=== PATIENT | female | born 1980 | race Caucasian/White ===

== ENCOUNTER 2016-05-20 10:28 | Inpatient (IN) | payer OTHER ==
[~2016-05-20] VITALS: Ht 167.6 cm; Wt 108.0 kg
[2016-05-20] MEDS ORDERED: Lactated Ringer's 1,000 ML IV SCH (14:10)
[2016-05-20] MEDS ORDERED: Oxytocin 30 Units/500 mL LR 30 UNITS in IV Premix 1 EACH IV PRN (14:10)
[2016-05-20] MEDS ORDERED: diphenhydrAMINE 50 mg Capsule PO PRN (14:10)
[2016-05-20] MEDS ORDERED: Oxytocin 10 Unit/mL Inj IM PRN (14:15)
[2016-05-20] MEDS ORDERED: Methylergonovine 0.2 mg/mL Inj IM PRN (14:15)
[2016-05-20] MEDS ORDERED: Penicillin G K Inj 5,000,000 UNITS in Dextrose 5% Minibag Plus 100 ML IV ONE (14:15)
[2016-05-20] MEDS ORDERED: Hemorrhage Kit, Post Partum XX ONE (14:15)
[2016-05-20] MEDS ORDERED: Carboprost 250 mCg/mL Inj IM PRN (14:15)
[2016-05-20 14:34] LABS: Mean Corpuscular Hemoglobin 28.4 pg (27.0-35.0); Mean Corpuscular Volume 84.3 fL (81-100)
--- NOTE | 2016-05-20 15:07 | OP ---
[address] [address] OPERATIVE REPORT PATIENT: MARIELLA GARCIA : 1980 MR#: [id number] ADMIT: 05/20/2016 JOB ID: [id number] DATE OF SURGERY: 05/20/2016 PREOPERATIVE DIAGNOSIS(ES): A 36-year-old, 2, para 1-0-0-1, at 41 weeks and 1 day gestational age, presenting for elective induction of labor. complicated with the followin. Rh negative. 2. Left pelviectasis. Last measurement is 14 mm at 36 weeks. 3. Evolving polyhydramnios. JALEN 23.4 cm yesterday ultrasound. POSTOPERATIVE DIAGNOSIS(ES): A 36-year-old, 2, para 1-0-0-1, at 41 weeks and 1 day gestational age, presenting for elective induction of labor. complicated with the followin. Rh negative. 2. Left pelviectasis. Last measurement is 14 mm at 36 weeks. 3. Evolving polyhydramnios. JALEN 23.4 cm yesterday ultrasound. PROCEDURE: Cervical ripening balloon insertion. SURGEON: Luis Felipe Solorio MD. ANESTHESIA: None. Vital signs: 130/77 for blood pressure, respirations are 18, pulse of 93, temperature 36.7 degrees centigrade. heart tracing with baseline of 125 beats per minute, positive accelerations, no decelerations, moderate variability, reactive tracing. DESCRIPTION OF PROCEDURE: Cervix was 1 cm dilated, long and high. On examination, the presentation was confirmed to be vertex on yesterday's ultrasound. The cervical ripening balloon was inserted through the cervical canal and after adequate positioning, 80 cc of normal saline injected in the uterine balloon and 80 cc of normal saline injected in the vaginal balloon. The patient tolerated the procedure well. Plan: Will continue with the cervical ripening balloon for 12 hours or until the balloon falls out, whichever earlier. Start Pitocin thereafter. I was asked to insert the balloon by Dr. Murguia, who is the patient's OB provider.Dr. Murguia will continue intrapartum management. [facility]
[2016-05-20] MEDS ORDERED: 0.9% Sodium Chloride 100 ML ONE (21:23)
[2016-05-20] MEDS ORDERED: Penicillin G K 5,000,000 Units Inj ONE (21:23)
[2016-05-20] MEDS: Lactated Ringer's 1,000 ML IV SCH (21:35)
--- NOTE | 2016-05-20 22:56 | PCM.HPOB ---
Subjective Date of Service: May 20, 2016 Referring Provider: Admitting Physician: Shona Murguia MD Primary Care Physician: Emmie Hernandez MD Attending Physician: Shona Murguia MD Chief Complaint labor induction at 41 wk 1 day gestational age History of Present History of Present Illness 36 F, , at 41 wk 1 d gestational age by LMP, confirmed by 15 wk u/s, presented around noon for labor induction indicated by post dates, polyhydramnios, and kidney anomaly. Initial exam revealed that the cervix was 1 cm dilated, long and high. Dr. Solorio then placed a balloon for cervical dilation around 2 PM today[address] pt sees Dr. Hernandez for care; her was complicated by advanced maternal age, Rh negative (RhoGAM given at 28 weeks), obesity, left renal pelviectasis, and GBS positive status. OB History: (2), Para (1), Term (1), Pre-term (0), ( 0), Living (1) Past Medical History Obstetrical History: normal vaginal delivery at term November 2014, after induction of labor at 41 wk 2 d gestational age. Hx Tobacco Use: No Past Family History Living Arrangement: with Family Genetic Screening/Counseling Genetic Screening/Counseling: Negative Review of Systems ROS no complaints Constitutional: Y: Change of appitite, Chills, Dizziness, Fever, Malaise, Other , Pain, Sweats, Weakness, Weight loss Eyes: Denies: Blurred Vision, Conjunctive Inflammation, Double Vision, Eyelid Inflammation, Other, Pain, Redness, Vision Changes ENT: Denies: Dental Problems, Dysphagia, Ear Discharge, Ear Pain, Hoarseness, Membranes Dry, Nasal Congestion, Nose Discharge, Nose Pain, Other, Throat Pain, Tinnitus, Ulcers/Sores in Mouth Cardiovascular: Denies: Chest Pain, Edema, Orthopnea, Other, Palpitations, SOB while laying flat Respiratory: Denies: Cough, Cough with bloody sputum, Other, Pleuritic Chest Pain, Pleuritic Chest Pain, SOB with Exertion, Sputum, Wheezing Gastrointestinal: Denies: Abdominal Pain, Black tarry stools, Blood in stool ( red), Change in Appetite, Constipation, Diarrhea, Epigastric pain, Heartburn, Nausea, Other, Use of Laxatives, Vomiting Genitourinary: Denies: Anuria, Change in Frequency, Dysuria, Hematuria, Incontinence, Nocturia, Other, Retention Musculoskeletal: Denies: Back Pain, Deformity, Limitation of Function, Neck Pain, Other, Redness, Shoulder Pain, Swelling Skin/Breasts: Denies: Bruising, Discharge, Dry or Flakiness, Jaundice, Lesions , Masses, Mastalgia, Other, Rash, Scars, Ulcers Skin: Denies: Bruising, Dry or Flakiness, Jaundice, Lesions, Other, Rash, Scars , Ulcers Neurological: Denies: Change in Speech, Confusion, Dizziness, Incoordination, Numbness, Other, Seizures, Somnolence, Tremors, Weakness Psychologic: Denies: Agitation, Anxious, Apprehensive, Depression, Insomnia, Instability, Nervousness, Other Endocrine: Denies: Blood Glucose Review, Change in Appitite, Diaphoresis, Excessive Thirst, Intolerent to Heat/Cold, Other, Recent A1C, Urinating frequently Medications Home medications vitamins Allergy Coded Allergies: No Known Allergies (Unverified Allergy, Unknown, 11/24/14) Exam Constitutional: Well-developed, Well-nourished, Normal habitus, Obese HEENT: Atraumatic Lungs: Clear to Auscultation Heart: Exam Unremarkable, Regular Rate/Rhythm, Normal S1, Normal S2, No Murmurs /Rubs/Gallops Abdomen: Gravid Neurological/Psychiatric: Alert, Oriented X3, Cooperative, No Acute Distress Labs/Diagnostics Labs O negative, Ab neg, VDRL NR, Rubella immune, HepBsAg neg, HIV neg, GC/CT neg, quad screen normal, glucola 143, 3 hour GTT all normal ([phone]), GBS POSITIVE Maternal Blood Type: O Hx Rho(D) Immune Globulin: Yes Group B Strep Results: Positive Rubella: Immune OB Intrapartum Assessment/Plan Assessment 36 F, , at 41 wk 1 d gestational age by LMP, confirmed by 15 wk u/s, admitted for labor induction indicated by post dates, polyhydramnios(JALEN~23.4 cm ), and kidney anomaly(left pelviectasis). Dr. Solorio for initial consults; see her note for balloon insertion. Will start antibiotics if the membranes ruptures or adequate time is needed prior to delivery. Shona Murguia MD May 20, 2016 22:56
[2016-05-21] MEDS: Penicillin G K Inj 3,000,000 UNITS in IV Premix 1 EACH IV SCH ×6 (01:39→22:16)
[2016-05-21] MEDS ORDERED: Lactated Ringer's 500 ML IV ONE (07:41)
[2016-05-21] MEDS: Lactated Ringer's 1,000 ML IV SCH ×3 (07:41→23:41)
[2016-05-21] MEDS ORDERED: EPHEDrine Sulfate 50 mg/mL Inj IVPUSH PRN (07:45)
[2016-05-21] MEDS ORDERED: fentaNYL 2 mCg/mL-Bupiv 0.125% 100 ML EPIDURAL SCH (07:45)
[2016-05-21] MEDS ORDERED: Atropine 1 mg/10 mL (Code) Syringe IVPUSH PRN (07:45)
[2016-05-21] MEDS ORDERED: Ondansetron 2 mg/mL 2 mL Inj IVPUSH PRN (07:45)
[2016-05-21] MEDS: Sodium Chloride LOK Flush 10 mL Syringe IVFLUSH SCH ×2 (08:30→16:30)
--- NOTE | 2016-05-21 18:40 | PCM.CONSUR ---
Subjective Date of Service: May 21, 2016 History of Present Illness A 36-year-old, 2, para 1-0-0-1, at 41 weeks and 1 day gestational age, presenting for elective induction of labor. complicated with the followin. Rh negative. 2. Left pelviectasis. Last measurement is 14 mm at 36 weeks. 3. Evolving polyhydramnios. JALEN 23.4 cm on recent ultrasound. Reason for Consultation AROM and no progress with Pitocin Induction Allergy Allergies: Coded Allergies: No Known Allergies (Unverified Allergy, Unknown, 11/24/14) Past Surgical History Surgeries: Yes (RT TIB) Social History Hx Alcohol Use: No Hx Substance Use: No Hx Tobacco Use: No PMH HEENT History History of ENT Problems?: No Cardiovascular History History of Heart Problems?: No Cardiovascular History: Denies:: Congestive Heart Failure Hypertension Respiratory History of Respiratory Problem: No Respiratory History: Denies:: Tuberculosis Neurological History Hx Neurologic Problems?: No Female/Male History Reproductive History Female: Positive for: Currently ? Musculoskeletal History Hx Musculoskeletal Problems?: No Other History Diabetes: No Social History Hx Alcohol Use: NoHx Substance Use: NoHx Tobacco Use: No Smoking Status: Never Smoker Objective Exam Result Diagram: 05/20/16 1420 Review of Systems: Constitutional: Negative, except as otherwise mentioned in the history above. Ophthalmologic: Negative, except as otherwise mentioned in the history above. Cardiovascular: Negative, except as otherwise mentioned in the history above. Respiratory: Negative, except as otherwise mentioned in the history above. Gastrointestinal: Negative, except as otherwise mentioned in the history above. Genitourinary: Negative, except as otherwise mentioned in the history above. Musculoskeletal: Negative, except as otherwise mentioned in the history above. Neurological: Negative, except as otherwise mentioned in the history above. Psychiatric: Negative, except as otherwise mentioned in the history above. Hematologic/Lymphatic: Negative, except as otherwise mentioned in the history above. Allergic/Immunologic: Negative, except as otherwise mentioned in the history above. H&P Surgical Exam Exam General: Alert, Oriented X3, Cooperative, No Acute Distress Additional Information Cervix is 4cm/50%/-3 posterior and soft. There is a head present and amniotic sac is palpable. Assessment & Plan Assessment 41 week gestation with left pelviectasis and an JALEN of 23.4. Elective induction of labor Problems: (1) Elective induction of labor planned Plan: I discussed with the patient the risks of AROM and alternative option of continuing with Pitocin. She indicated understanding and consented to AROM and restarting Pitocin. I recommend that you continue with Pitocin per protocol at this time and try to avoid stopping and restarting Pitocin. This will only delay her induction. I anticipate that now she is ruptured she will progress and go in to labor. Status: Acute ICD Code: [id number] Tc Ryan MD May 21, 2016 18:40
[2016-05-21] MEDS: Ranitidine 15 mg/mL 473 mL Syrup PO SCH ×2 (19:32→20:30)
--- NOTE | 2016-05-21 21:46 | PCM.PNOBIP ---
Subjective Date of Service May 21, 2016 Subjective Showing good spirit after having rested this afternoon. Gastrointestinal: Good Appetite Group B Strep Results: Positive Rubella: Immune Blood Type: O Labs Laboratory Tests 05/20/16 14:20: White Blood Count 14.7, Red Blood Count 4.72, Hemoglobin 13.4, Hematocrit 39.8, Mean Corpuscular Volume 84.3, Mean Corpuscular Hemoglobin 28.4, Mean Corpuscular Hemoglobin Concent 33.7, Red Cell Distribution Width 13.4, Platelet Count 297 Exam Vital Signs Vital Signs Contraction frequency in minutes: MVUs: Vital Signs: VS reviewed, stable Heart Tracings Heart Tones Baseline bpm Heart Rate Category: I Tocometry/IUPC Contraction frequency in minutes: MVUs: Sterile Vaginal Exam cervix: 4cm/50%/-3 posterior and soft per Dr. Ryan. Exam Extremities: No cords, Normal pulses Lungs: Clear to Auscultation Heart: Exam Unremarkable, Regular Rate/Rhythm, Normal S1, Normal S2, No Murmurs /Rubs/Gallops General: Alert, Oriented X3, Cooperative, No Acute Distress OB Intrapartum Assessment/Plan Assessment 36 F, at 41 wk 2 d gestational age, admitted yesterday noon for elective induction for post dates, AFT=23.4, and left pelviectasis; s/p AROM by Dr. Ryan this evening, produced clear fluid, will continue labor induction with pitocin. See note by Dr. Ryan for recommendations. Problems: (1) Elective induction of labor planned Status: Acute ICD Code: [id number] Shona Murguia MD May 21, 2016 21:46
[2016-05-22] MEDS: Lactated Ringer's 1,000 ML IV SCH ×5 (00:20→21:25)
--- NOTE | 2016-05-22 00:26 | PCM.HPANE ---
Patient Data Surgeon Admitting Provider:Shona Murguia MD Attending Provider:Shona Murguia MD Primary Care Physician:Emmie Hernandez MD Other Provider:[facility] Reason for Visit Induction INDUCTION Ht/WT & BMI Body Mass Index Allergies Coded Allergies: No Known Allergies (Unverified Allergy, Unknown, 11/24/14) Diabetes History Hx Diabetes?: No MRSA MRSA: No History History of ENT Problems?: No Hx of Heart Problems?: No Cardiovascular History: Denies:: Congestive Heart Failure Hypertension Hx of Respiratory Problem?: No Respiratory History: Denies:: Tuberculosis Hx Neurologic Problems?: No Hx of GI Problems?: Yes (GERD well controlled) Female Hx: Positive for:: Currently Hx Musculoskeletal Problems?: No Hx Surgeries?: Yes (RT TIB) Hx Diabetes: No Hx Alcohol Use: NoHx Substance Use: No Smoking Status: Never Smoker Have You Smoked inLast 12 mo: No Stop/Bang Risk Assessment Category Category 1A: Patient has history of documented sleep apnea, and HAS NOT received any narcotic, sedative or anesthesia administration during this stay. Category 1B: Patient has history of documented sleep apnea, and HAS received any narcotic , sedative or anesthesia administration during this stay Category 2: Patient has SUSPECTED Obstructive Sleep Apnea, and HAS received any narcotic , sedative or anesthesia administration during this stay. Category 3: Patient has SUSPECTED Obstructive Sleep Apnea and HAS NOT received narcotic, sedative or anesthesia administration during this stay. Category 4: Outpatient in Procedural Areas with known sleep apnea or who screen positive for High Risk via the STOP/BANG questionnaire. Exam Exam General Appearance: Alert, Oriented X3 HEENT/AIRWAY: MP 2, Neck Movement (FROM) Lungs: Clear to Auscultation, Clear to Percussion Heart: Exam Unremarkable, Regular Rate/Rhythm Meds/Labs/Diagnostics Admission Meds Current Medications Lactated Ringer's 1,000 ml @ 125 mls/hr Q8H IV Last administered on 05/20/16 21:35; Start 05/20/16 at 13:41 Lactated Ringer's 1,000 ml @ 125 mls/hr Q8H IV Last administered on 05/21/16 06:54; Start 05/20/16 at 14:10 Penicillin G Potassium 0233050 units/Dextrose/ Water 100 ml @ 240 mls/hr ONCE ONCE IV Last administered on 05/20/16 21:37; Start 05/20/16 at 14:15; Stop at 14:39; Status DC Penicillin G Potassium/ Dextrose [id number] units/Premix 50 ml @ 100 mls/hr Q4 IV Last administered on 05/21/16 05:32; Start 05/20/16 at 20:30 Sodium Chloride (Normal Saline) 100 ml @ ud STK-MED ONCE .ROUTE Last administered on 05/20/16 21:36; Start 05/20/16 at 21:23; Stop 05/20/16 at 21:24 ; Status DC Labs Test 05/20/16 14:20 White Blood Count 14.7th/mm3 (3.8-10.1) Red Blood Count 4.72mil/mm3 (3.90-5.20) Hemoglobin 13.4g/dL (12.0-15.6) Hematocrit 39.8% (35.0-46.0) Mean Corpuscular Volume 84.3fL (81-100) Mean Corpuscular Hemoglobin 28.4pg (27.0-35.0) Mean Corpuscular Hemoglobin Concent 33.7% (32.0-37.0) Red Cell Distribution Width 13.4% (12.3-15.4) Platelet Count 297bil/L (150-400) Plan Impression Patient chart reviewed, patient interviewed and anesthestic plan with risks, benefits, and alternatives discussed, and informed consent obtained. ASA Physical Status: ASA2 Mod Systemic Disease Anesthetic Plan: Epidural Bene/Risks/Altern/Consents: Yes HP Complete Prior to Induction: Yes Vinod Krishnan MD May 21, 2016 07:43
--- NOTE | 2016-05-22 00:27 | PCM.ANEP2 ---
Post Anesthesia Evaluation ASA/CMS Post Anesthesia VS in Patient's Normal Range?: Yes Resp Stable; Airway Patent?: Yes CV Function & Hydration Stable: Yes Mental Status Recovered?: Yes Pain control Satisfactory?: Yes N/V Control Satisfactory?: Yes Vinod Krishnan MD May 22, 2016 00:27
[2016-05-22] MEDS: Penicillin G K Inj 3,000,000 UNITS in IV Premix 1 EACH IV SCH ×7 (00:30→20:30)
[2016-05-22] MEDS: Sodium Chloride LOK Flush 10 mL Syringe IVFLUSH SCH ×3 (00:30→16:30)
[2016-05-22] MEDS ORDERED: LANOlin HPA 7 Gm Ointment TOPICAL PRN (05:25)
[2016-05-22] MEDS ORDERED: Oxytocin 30 Units/500 mL LR 30 UNITS in IV Premix 1 EACH IV PRN (05:25)
[2016-05-22] MEDS ORDERED: Benzocaine (Dermoplast) 20% 60 Gm Spray TOPICAL PRN (05:25)
[2016-05-22] MEDS ORDERED: Carboprost 250 mCg/mL Inj IM PRN (05:25)
[2016-05-22] MEDS ORDERED: Methylergonovine 0.2 mg/mL Inj IM PRN (05:25)
[2016-05-22] MEDS ORDERED: HYDROcodone-APAP 5-325 mg Tablet PO PRN (05:25)
[2016-05-22] MEDS ORDERED: Witch Hazel-Glycerin Pads TOPICAL PRN (05:25)
[2016-05-22] MEDS ORDERED: Oxytocin 10 Unit/mL Inj IM PRN (05:25)
[2016-05-22] MEDS ORDERED: Hemorrhage Kit, Post Partum XX ONE (05:25)
--- NOTE | 2016-05-22 05:50 | PCM.OBVAG ---
Vaginal Delivery Date of Service May 22, 2016 Pre Operative Diagnosis Pre Operative Diagnosis term ; JALEN=23.4 cm; left pelviectasis; GBS pos; Rh neg. Post Operative Diagnosis Post Operative Diagnosis normal vaginal delivery at term; adequate antibiotic treatment for positive GBS ; Rh negative; Procedure Procedure: dilation was complete at 4:16 AM, delivered at 4:47 AM today 05/22/16; head position: QUYNH; =8/9; the baby girl was placed to mother's chest after immediately after ; the cord was clamped ~2 min after ; the placenta was delivered intact, with 3-vessel cord; 2nd degree midline perineal tear, repaired using 3-O vicryl sutures; ZGH=576 ml. Sponge count was correct; sharps/ needles were disposed appropriately. Both the mother and the remained in good conditions after the delivery. Obstetical Procedure: Normal Spontaneous Vaginal Delivery Bread Jockey/Dredge Operator Provider and Dredge Operator: Dr. Murguia Indication for Procedure Induction: Active labor, Induction of labor, Pitocin augmentation, AROM Findings Obstetrical Findings: [place] (Female), Cord (3 Vessel), 1 minute (8), 5 minutes (9) Analgesia/Medications Obstetrical Anesthesia: Epidural, Local Blood Loss & Administration Estimated Blood Loss: 350 Blood Admin during procedure: No Post Procedure Plan Post delivery Condition: Mom stable, Baby stable to nursery Shona Murguia MD May 22, 2016 05:50
[2016-05-22] MEDS: Ranitidine 15 mg/mL 473 mL Syrup PO SCH ×2 (08:30→20:30)
[2016-05-23 06:47] LABS: Mean Corpuscular Hemoglobin 28.3 pg (27.0-35.0); Mean Corpuscular Volume 85.7 fL (81-100)
[2016-05-23] MEDS: Lactated Ringer's 1,000 ML IV SCH (07:30)
[2016-05-23] MEDS: Ranitidine 15 mg/mL 473 mL Syrup PO SCH (08:30)
[2016-05-23] MEDS: Sodium Chloride LOK Flush 10 mL Syringe IVFLUSH SCH (08:30)
[2016-05-23] MEDS: Penicillin G K Inj 3,000,000 UNITS in IV Premix 1 EACH IV SCH (08:30)
--- NOTE | 2016-05-23 10:52 | PCM.DC.OB ---
Obstetrical Discharge Summary Date of Service May 23, 2016 Date of hospital admission May 20, 2016 at 12:05 Date of Discharge: May 23, 2016 Providers Admitting Physician: Shona Murguia MD Primary Care Physician: Emmie Hernandez MD Attending Physician: Shona Murguia MD Diagnosis at Time of Discharge normal vaginal delivery at term; adequately treated positive GBS. Problems: (1) Elective induction of labor planned Status: Acute ICD Code: [id number] Solorio, Dr. Gomes, Dr. Ryan; Brief History and Physical: 36 F, , at 41 wk 1 d gestational age by LMP, confirmed by 15 wk u/s, presented around noon for labor induction indicated by post dates, polyhydramnios, and kidney anomaly. Initial exam revealed that the cervix was 1 cm dilated, long and high. Dr. Solorio then placed a balloon for cervical dilation. The balloon was displaced ~7 hr later on 05/20/16, when the cervix was dilated to 5 cm. Pitocin augmentation was placed. No adequate dilation until 24 hr later. Dilation was complete ~4:16 AM yesterday morning, and she delivered at 4:43 AM. She did well on day 1, ready to go home. Hospital Course: 36 F, , at 41 wk 1 d gestational age by LMP, confirmed by 15 wk u/s, presented around noon for labor induction indicated by post dates, polyhydramnios, and kidney anomaly. Initial exam revealed that the cervix was 1 cm dilated, long and high. Dr. Solorio then placed a balloon for cervical dilation. The balloon was displaced ~7 hr later on 05/20/16, when the cervix was dilated to 5 cm. Pitocin augmentation was placed. No adequate dilation until 24 hr later. Dilation was complete ~4:16 AM yesterday morning, and she delivered at 4:43 AM. Epidural was placed for pain control. She did well on day 1, ready to go home. Disposition home Follow-[place] plan [place] [facility] [place] Dr. Hernandez in 4 to 6 wk for care, sooner as needed. Discharge Diet: Heart Healthy Discharge Activity-General: Pelvic Rest for 6 weeks Shona Murguia MD May 23, 2016 10:52
--- NOTE | 2016-05-23 10:57 | PCM.DIOB ---
Obstetrical Disch Instruction Date of Service: May 23, 2016 Dates of Hospitalization Date of Hospital Admission May 20, 2016 at 12:05 Providers Admitting Physician: Shona Murguia MD Primary Care Physician: Emmie Hernandez MD Attending Physician: Shona Murguia MD Discharge Diagnosis Discharge Diagnosis normal vaginal delivery at term after induction of labor indicated by post dates , polyhydramnios, left pelviectasis; adequately treated positive GBS. Problems: (1) Elective induction of labor planned Status: Acute ICD Code: [id number] Diet Discharge Diet: Heart Healthy Activity Discharge Activity-General: Pelvic Rest for 6 weeks Dressing and Incisional Care Hygiene: September shower Follow Up Plan Follow Up Plan f[place] Dr. Hernandez in 4 to 6 wk for exam, sooner as needed. Follow-up Provider (F9): Emmie Hernandez MD Follow-up appointment: Weeks (4-6) Call your provider for: Fever or Chills, Shortness of breath, Heavy vaginal bleeding, Heavy bleeding, Epigastric pain, Excessive constipation, Vaginal discomfort, Red painful breasts Shona Murguia MD May 23, 2016 10:57
--- NOTE | 2016-05-23 11:00 | PCM.PNOBPP ---
Subjective Date of Service May 23, 2016 Post : Spontaneous Vaginal Delivery Lochia: Normal Pain Management: PO pain meds Gastrointestinal: Good Appetite Postop Activity: Ambulating Independently Group B Strep Results: Positive Rubella: Immune Blood Type: O RH Type: Negative Labs Laboratory Tests 05/23/16 06:33: White Blood Count 11.1, Red Blood Count 4.14, Hemoglobin 11.7, Hematocrit 35.5, Mean Corpuscular Volume 85.7, Mean Corpuscular Hemoglobin 28.3, Mean Corpuscular Hemoglobin Concent 33.0, Red Cell Distribution Width 13.3, Platelet Count 267 Exam Vital Signs Vital Signs: VS reviewed, stable Exam Abdomen: Fundus firm Perineum: Laceration : Voiding without difficulty Extremities: No cords, Normal pulses, No tenderness/swelling Lungs: Clear to Auscultation Heart: Exam Unremarkable, Regular Rate/Rhythm, Normal S1, Normal S2, No Murmurs /Rubs/Gallops General: Alert, Oriented X3, Cooperative, No Acute Distress OB Post Assessment/Plan Assessment doing well on day 1 after normal vaginal delivery at term yesterday; received RhoGAM this AM. Problems: (1) Elective induction of labor planned Status: Acute ICD Code: [id number] Pain Evaluation: Adequate Pain Control Attending Statement home today. Shona Murguia MD May 23, 2016 11:00
[2016-05-23] MEDS ORDERED: DOCU-41 PO (11:19)
[2016-05-23] MEDS ORDERED: IBUP-1827 PO (11:19)
[2016-05-23 12:03] VITALS: BP 137/78; PULSE 93; RESP 17
== END 2016-05-23 14:26 | disposition home or self-care (01) | DRG 560 ==
LOC: FBC 12:05
PROVIDERS: ADMIT Family Medicine; ATTEND Family Medicine
PROC: 3E0P7GC Introduction of Other Therapeutic Substance into Female Reproductive, Via Natural or Artificial Opening (ICD-10-PCS; 2016-05-20)
PROC: 10E0XZZ Delivery of Products of Conception, External Approach (ICD-10-PCS; principal; 2016-05-22)
PROC: 0KQM0ZZ Repair Perineum Muscle, Open Approach (ICD-10-PCS; 2016-05-22)
PROC: 10907ZC Drainage of Amniotic Fluid, Therapeutic from Products of Conception, Via Natural or Artificial Opening (ICD-10-PCS; 2016-05-22)
PROC: 3E0234Z Introduction of Serum, Toxoid and Vaccine into Muscle, Percutaneous Approach (ICD-10-PCS; 2016-05-22)
DX: O48.0 Post-term pregnancy (principal); O40.3XX0 Polyhydramnios, third trimester, not applicable or unspecified; O36.0930 Maternal care for other rhesus isoimmunization, third trimester, not applicable or unspecified; O99.820 Streptococcus B carrier state complicating pregnancy; O70.1 Second degree perineal laceration during delivery; Z3A.41 41 weeks gestation of pregnancy; Z37.0 Single live birth; O09.523 Supervision of elderly multigravida, third trimester